=== PATIENT | female | born 1970 | race Caucasian/White ===

== ENCOUNTER 2017-06-27 17:51 | Observation (INO) | payer BC ==
--- NOTE | 2017-06-27 17:50 | CT ---
EXAMINATION TYPE: CT abdomen pelvis wo con DATE OF EXAM: 06/27/2017 HISTORY: RLQ pain for [address] DLP: 974 mGycm. Automated Exposure Control for Dose Reduction was Utilized. TECHNIQUE: CT scan of the abdomen and pelvis is performed without oral or IV contrast. COMPARISON: Gallbladder ultrasound May 16, 2017 FINDINGS: Within the limitations of a non-contrast study, the following observations are made. LUNG BASES: No significant abnormality is appreciated. LIVER/GB: Small stones and/or gallbladder sludge is redemonstrated in contracted gallbladder. No surr ounding inflammatory change is seen. PANCREAS: No significant abnormality is seen. SPLEEN: No significant abnormality is seen. ADRENALS: No significant abnormality is seen. KIDNEYS: No renal stones or hydronephrosis is present bilaterally. Multiple scattered pelvic phleboli ths are seen BOWEL: Evaluation bowel slightly suboptimal secondary to lack of enteric contrast. There is no suspic ious small or large bowel dilatation. Appendix is abnormally thickened from cecum in the right lower quadrant measuring up to 16 mm. There is moderate concentric wall thickening seen towards the tip. In addition there is moderate ill-defined surrounding fluid. CT findings are consistent with acute appe ndicitis. Terminal ileum is not well visualized. No well-formed fluid collection or abscess is seen. No pneumoperitoneum is present. GENITAL ORGANS: The uterus is not well identified and may be partially or completely surgically absen t or atrophic in appearance. Correlate clinically. LYMPH NODES: No greater than 1cm abdominal or pelvic lymph nodes are appreciated. OSSEOUS STRUCTURES: No significant abnormality is seen. OTHER: No significant additional abnormality is seen. IMPRESSION: CT findings consistent with a fairly moderate acute appendicitis as detailed above. No pn eumoperitoneum currently. Critical results communicated to the architectural technologist who contacted the ordering physician office. Pat ient sent to emergency room for further management and/or treatment.
[2017-06-27] MEDS ORDERED: SODIUM CHLORIDE 0.9% 1,000 ML IV ONE (18:56)
[2017-06-27] MEDS ORDERED: cefTRIAXone IN SWFI 1,000 MG/10 ML SYRINGE IVP STA (18:56)
[2017-06-27] MEDS ORDERED: metroNIDAZOLE 500 MG TAB PO STA (18:56)
[2017-06-27] MEDS ORDERED: NALOXONE 0.4 MG/ML 1 ML VIAL IV PRN (19:05)
--- NOTE | 2017-06-27 19:05 | ED ---
Abdominal Pain HPI - General Chief Complaint: Abdominal Pain Stated Complaint: Abd.pain Time Seen by Provider: 06/27/17 17:59 Source: patient Mode of arrival: ambulatory Limitations: no limitations - History of Present Illness Initial Comments: 47-year-old female presenting for evaluation of right lower quadrant abdominal pain. States that he symptoms started on Monday night however she continued to have pain and was sent for a CT abdomen and pelvis which showed appendicitis. She was transferred here for further treatment and evaluation. - Related Data Home Medications Medication Instructions Recorded Confirmed Ascorbic Acid [Vitamin C] 1,000 mg PO DAILY 06/27/17 06/27/17 Cranberry 4200mg 4,200 mg PO BID 06/27/17 06/27/17 Enalapril [Vasotec] 20 mg PO BID 06/27/17 06/27/17 Estradiol [Estrace] 1.5 mg PO DAILY 06/27/17 06/27/17 Hydroxychloroquine Sulfate 200 mg PO BID 06/27/17 06/27/17 [Plaquenil] Magnesium Oxide [Ch] 500 mg PO DAILY 06/27/17 06/27/17 Previous Rx's Medication Instructions Recorded Pantoprazole Sodium [Protonix] 40 mg PO BID #28 tablet. 06/29/17 Allergies Allergy/AdvReac Type Severity Reaction Status Date / Time narcotics Allergy Vomiting Uncoded 06/27/17 18:04 Review of Systems ROS Statement: Those systems with pertinent positive or pertinent negative responses have been documented in the HPI. ROS Other: All systems not noted in ROS Statement are negative. Constitutional: Denies: fever, chills Eyes: Denies: eye pain, vision change ENT: Denies: ear pain, throat pain Respiratory: Denies: cough, dyspnea Cardiovascular: Denies: chest pain, palpitations Endocrine: Denies: fatigue, polydipsia, polyuria Gastrointestinal: Reports: abdominal pain, nausea. 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 Past Surgical History: Section, Hysterectomy, Orthopedic Surgery Additional Past Surgical History / Comment(s): laparoscopy, kidney biopsy, knee surgery Past Psychological History: Depression Smoking Status: Never smoker Past Alcohol Use History: None Reported Past Drug Use History: None Reported - Past Family History Mother Brother(s) Family Medical History: AFIB Brother(s) Family Medical History: AFIB General Exam Limitations: no limitations General appearance: alert, in no apparent distress Head exam: Present: atraumatic, normocephalic, normal inspection Eye exam: Present: normal appearance, PERRL, EOMI. Absent: scleral icterus, conjunctival injection, periorbital swelling ENT exam: Present: normal exam, mucous membranes moist Neck exam: Present: normal inspection. Absent: tenderness, meningismus, lymphadenopathy Respiratory exam: Present: normal lung sounds bilaterally. Absent: respiratory distress, wheezes, rales, rhonchi, stridor Cardiovascular Exam: Present: regular rate, normal rhythm, normal heart sounds. Absent: systolic murmur, diastolic murmur, rubs, gallop, clicks GI/Abdominal exam: Present: soft, tenderness. Absent: distended, guarding, rebound, rigid, normal bowel sounds Rectal exam: Present: deferred Extremities exam: Present: normal inspection, full ROM, normal capillary refill. Absent: tenderness, pedal edema, joint swelling, calf tenderness Back exam: Present: normal inspection Neurological exam: Present: alert, oriented X3, CN II-XII intact Psychiatric exam: Present: normal affect, normal mood Skin exam: Present: warm, dry, intact, normal color. Absent: rash Course Vital Signs 06/27/17 06/27/17 18:04 19:48 Temperature 98.1 F 98.1 F Pulse Rate 64 78 Respiratory 16 18 Rate Blood Pressure 138/65 118/75 O2 Sat by Pulse 100 98 Oximetry Medical Decision Making - Medical Decision Making 47-year-old female presenting for evaluation of right lower quadrant abdominal pain. CT was obtained prior to coming to the ED and confirms appendicitis. Labs revealed a mild achy I but otherwise no other significant abnormalities. Discussed with the admitting provider who requested consult surgery. Surgery agreed with plan to keep patient nothing by mouth after midnight and to start the patient on antibiotics. Admission order placed in bed request submitted. - Lab Data Result diagrams: 06/28/17 06:50 06/28/17 06:50 Lab Results 06/27/17 06/27/17 Range/Units 18:27 18:27 WBC 8.9 (3.8-10.6) k/uL RBC 4.56 (3.80-5.40) m/uL Hgb 13.1 (11.4-16.0) gm/dL Hct 39.2 (34.0-46.0) % MCV 86.1 (80.0-100.0) fL MCH 28.7 (25.0-35.0) pg MCHC 33.4 (31.0-37.0) g/dL RDW 12.6 (11.5-15.5) % Plt Count 220 (150-450) k/uL Neutrophils % 76 % Lymphocytes % 17 % Monocytes % 5 % Eosinophils % 0 % Basophils % 0 % Neutrophils # 6.8 (1.3-7.7) k/uL Lymphocytes # 1.5 (1.0-4.8) k/uL Monocytes # 0.5 (0-1.0) k/uL Eosinophils # 0.0 (0-0.7) k/uL Basophils # 0.0 (0-0.2) k/uL ESR 21 H (0-20) mm/hr Sodium 140 (137-145) mmol/L Potassium 4.5 (3.5-5.1) mmol/L Chloride 101 (98-107) mmol/L Carbon Dioxide 26 (22-30) mmol/L Anion Gap 13 mmol/L BUN 24 H (7-17) mg/dL Creatinine 1.20 H (0.52-1.04) mg/dL Est GFR (MDRD) Af Amer 59 (>60 ml/min/1.73 sqM) Est GFR (MDRD) Non-Af 48 (>60 ml/min/1.73 sqM) Glucose 76 (74-99) mg/dL Calcium 10.3 H (8.4-10.2) mg/dL C-Reactive Protein 34.6 H (<10.0) mg/L Disposition Clinical Impression: Acute appendicitis Disposition: ADMITTED IP TO THIS [facility] Condition: Good Decision to Admit Reason: Admit from EC Decision Date: 06/27/17 Decision Time: 19:05
[2017-06-27] MEDS ORDERED: ONDANSETRON 4 MG/2 ML VIAL IVP PRN (19:10)
[2017-06-27] MEDS ORDERED: MORPHINE SULFATE 5 MG/ML SYRINGE IV PRN (19:10)
[2017-06-27 19:16] LABS: Basophils % (A) 0 %; Eosinophils % (A) 0 %; HCT 39.2 % (34.0-46.0); HGB 13.1 gm/dL (11.4-16.0); Lymphocytes # (A) 1.5 k/uL (1.0-4.8); Lymphocytes % (A) 17 %; MCH 28.7 pg (25.0-35.0); MCHC 33.4 g/dL (31.0-37.0); MCV 86.1 fL (80.0-100.0); Mean Platelet Volume 7.6; Monocytes # (A) 0.5 k/uL (0-1.0); Monocytes % (A) 5 %; Neutrophils # (A) 6.8 k/uL (1.3-7.7); Neutrophils % (A) 76 %; Platelet Count 220 k/uL (150-450); RBC 4.56 m/uL (3.80-5.40); RDW 12.6 % (11.5-15.5); WBC 8.9 k/uL (3.8-10.6)
[2017-06-27 19:17] LABS: C Reactive Protein 34.6 mg/L (<10.0); Calcium 10.3 mg/dL (8.4-10.2); Potassium 4.5 mmol/L (3.5-5.1)
[2017-06-27 20:13] LABS: Erythrocyte Sedimentation Rate 21 mm/hr (0-20)
[2017-06-27] MEDS: SODIUM CHLORIDE 0.9% 1,000 ML IV SCH (20:41)
[2017-06-27] MEDS ORDERED: CRANBERRY 4200 MG PO SCH (21:00)
[2017-06-27] MEDS ORDERED: LORazepam 2 MG/ML INJ IV PRN (21:21)
[2017-06-27] MEDS ORDERED: PANTOPRAZOLE 40 MG/10 ML VIAL IVP STA (21:22)
[2017-06-27] MEDS ORDERED: HYDROmorphone 0.5 MG/0.5 ML SYRINGE IVP PRN (21:29)
[2017-06-27 21:48] VITALS: BMI 25.5
[2017-06-27] MEDS: KETOROLAC 30 MG/ML 1 ML VIAL IVP SCH (22:34)
[2017-06-27] MEDS: LISINOPRIL 20 MG TAB PO SCH (22:35)
[2017-06-27] MEDS: HYDROXYCHLOROQUINE SULFATE 200 MG TAB PO SCH (22:35)
--- NOTE | 2017-06-28 03:41 | HP ---
HISTORY AND PHYSICAL DATE OF SERVICE: 06/27/2017 CHIEF COMPLAINT: Abdominal pain, nausea, vomiting. HISTORY OF PRESENT ILLNESS: This 47-year-old woman with a past medical history of multiple medical problems, including hypertension, history of lupus with kidney disease, history of VRE, history of DJD, history of depression being followed by Dr. Tavares in the outpatient setting is complaining of abdominal pain since today. The pain is felt in the lower part of the abdomen. The patient previously had gallbladder pain and had scheduled her surgery in the summer from [facility]. The current pain, according to her, is situated lower than the gallbladder pain, which is radiating like a band in the lower part of the abdomen. The patient came to [facility] and admitted for further evaluation and treatment. Evaluation showed normal CBC. Creatinine was 1.2. C - reactive protein is elevated at 34.6 and abdominal-pelvis CAT scan was also done which showed evidence of fairly moderate acute appendicitis and without any pneumoperitoneum and the gallbladder showed gallbladder stones and sludge, also. There was no history of fever, rigors. No history of headache, loss of consciousness, seizures. Patient refused any pain medication, but subsequently patient has significant abdominal pain as well as vomiting also. Surgical evaluation with Dr. Bullock is underway. There is no history of fever, rigors, chills at this time. PAST MEDICAL HISTORY: History of hypertension, lupus with kidney disease, VRE, . MEDICATIONS PRIOR TO ADMISSION: Include: 1. Magnesium oxide 500 mg p.o. daily. 2. Plaquenil 200 mg p.o. b.i.d. 3. Estrace 1.5 mg daily. 4. Vasotec 20 mg p.o. b.i.d. 5. Cranberry 4.2 mg p.o. b.i.d. 6. Ecotrin 320 mg p.o. daily. 7. Vitamin C 1000 mg. ALLERGIES: Are NARCOTICS. FAMILY HISTORY: History A. fib. in the family. SOCIAL HISTORY: No history of smoking. No history of alcohol intake. REVIEW OF SYSTEMS: ENT: No diminished hearing, diminished vision. CARDIOVASCULAR: No angina, palpitations. RESPIRATORY: No cough or hemoptysis. GI: No nausea or vomiting. : No dysuria. NERVOUS: No numbness or weakness. ALLERGY/IMMUNOLOGY: No asthma or hay fever. MUSCULOSKELETAL: As mentioned earlier. HEMATOLOGY/ONCOLOGY: No history of anemia. ENDOCRINE: No history of diabetes, hypothyroidism. CONSTITUTIONAL: As mentioned earlier. DERMATOLOGY: Negative. RHEUMATOLOGY: Negative. PSYCHIATRY: As mentioned earlier. PHYSICAL EXAMINATION: Alert and oriented x3. Pulse is 64, blood pressure 130/64, respirations 16, temperature 98.1, pulse ox 100% on room air. HEENT: Conjunctivae normal. Oral mucosa dry. NECK: No jugular venous distention. CARDIOVASCULAR: S1, S2 muffled. RESPIRATORY: Breath sounds diminished in the bases. A few scattered rhonchi. No crackles. ABDOMEN: Soft. Mild diffuse distension. Significant tenderness in the right lower quadrant present. No guarding, no rigidity. No masses. Bowel sounds diminished. No ascites. No rebound tenderness. No other mass palpable. LEGS: No edema. No swelling. NERVOUS SYSTEM: Higher functions as mentioned earlier. Moves all 4 limbs. No focal motor or sensory deficits. LYMPHATIC: No lymphadenopathy in neck or axillae. SKIN: No ulcer, rash or bleeding. LABS: ESR is 21. CBC within normal limits. Creatinine is 1.20. C-reactive protein is 34.6. ASSESSMENT: 1. Acute appendicitis. 2. History of gallbladder stones scheduled for surgery. 3. Increased creatinine with mild acute renal failure, prerenal factors. 4. Hypertension. 5. History of lupus with kidney disease. 6. History of vancomycin-resistant Enterococcus. 7. Hysterectomy. 8. History of laparoscopic kidney biopsy. 9. Depression. RECOMMENDATIONS AND DISCUSSION: In this 47-year-old woman who presented with multiple complex medical issues, we will monitor the patient closely, continue the current medical management and symptomatic treatment, obtain cultures. Otherwise empiric antibiotics will be given, pain management, Protonix, DVT prophylaxis. Resume the home medications. Prognosis guarded because of multiple complex medical issues and further recommendations to follow. A copy of dictation will be forwarded to Dr. Tavares, who is the primary physician. MMODL / IJN: [id number] / MTDFelipe
[2017-06-28 07:19] LABS: Basophils % (A) 0 %; Eosinophils # (A) 0.1 k/uL (0-0.7); Eosinophils % (A) 1 %; HGB 10.7 gm/dL (11.4-16.0); Lymphocytes # (A) 0.6 k/uL (1.0-4.8); Lymphocytes % (A) 5 %; MCH 28.3 pg (25.0-35.0); MCHC 32.3 g/dL (31.0-37.0); MCV 87.4 fL (80.0-100.0); Mean Platelet Volume 8.1; Monocytes # (A) 0.4 k/uL (0-1.0); Monocytes % (A) 3 %; Neutrophils # (A) 10.3 k/uL (1.3-7.7); Neutrophils % (A) 91 %; Platelet Count 161 k/uL (150-450); RBC 3.78 m/uL (3.80-5.40); RDW 13.3 % (11.5-15.5); WBC 11.4 k/uL (3.8-10.6)
[2017-06-28 07:26] LABS: Anion Gap 12 mmol/L; Blood Urea Nitrogen 18 mg/dL (7-17); Calcium 9.1 mg/dL (8.4-10.2); Carbon Dioxide 21 mmol/L (22-30); Chloride 107 mmol/L (98-107); Glucose 89 mg/dL (74-99); Potassium 4.1 mmol/L (3.5-5.1); Sodium 140 mmol/L (137-145)
[2017-06-28] MEDS: HEPARIN SODIUM,PORCINE 5,000 UNIT/ML 1 ML VIAL SQ SCH ×3 (08:42→22:09)
[2017-06-28] MEDS: PANTOPRAZOLE 40 MG/10 ML VIAL IVP SCH ×2 (08:42→21:56)
[2017-06-28] MEDS: PIPERACILLIN-TAZOBACTAM 3.375 GM in DEXTROSE/WATER 1 50ML.BAG IVPB SCH ×2 (08:43→20:16)
[2017-06-28] MEDS: KETOROLAC 30 MG/ML 1 ML VIAL IVP SCH ×2 (08:51→20:33)
[2017-06-28] MEDS ORDERED: ASPIRIN 325 MG TAB PO SCH (09:00)
[2017-06-28] MEDS: ESTRADIOL 0.5 MG TAB PO SCH (10:46)
[2017-06-28] MEDS: ASCORBIC ACID 500 MG TAB PO SCH (10:46)
[2017-06-28] MEDS: HYDROXYCHLOROQUINE SULFATE 200 MG TAB PO SCH ×2 (10:47→22:12)
[2017-06-28] MEDS: MAGNESIUM OXIDE 400 MG TAB PO SCH (10:47)
[2017-06-28] MEDS: LISINOPRIL 20 MG TAB PO SCH ×2 (10:47→22:12)
[2017-06-28] MEDS: SODIUM CHLORIDE 0.9% 1,000 ML IV SCH (11:15)
--- NOTE | 2017-06-28 11:23 | P.GSCN ---
<Negra Quinn - Last Filed: 06/28/17 11:09> History of Present Illness Consult date: 06/28/17 Reason for Consult: Abdominal pain History of present illness: 47-year-old female being seen at the request of the attending for a surgical eval who presented to the emergency room with a chief complaint of right lower abdominal pain. Patient states the pain is different than her "gallbladder pain should been experiencing. Patient states she had been experiencing epigastric abdominal discomfort had an ultrasound of the gallbladder done on May 16. Report was reviewed it did show gallbladder sludge with no obvious stones no wall thickening. No secondary ultrasound evidence for acute cholecystitis. Patient reports that she was to see a surgeon in [facility] to follow up on the ultrasound of the gallbladder in which the patient states she was hoping to have the surgery done in the summer when she's not working. Patient states the pain she been experiencing this admission is different than "her gallbladder pain. In the emergency room a CAT scan of the abdomen and pelvis without contrast was obtained as part of workup for right lower quadrant pain findings consistent with a fairly moderate acute appendicitis. Patient gives a history of having intentionally lost 100 pounds within the last year by diet and exercise. Patient's past medical history significant for lupus , paroxysmal atrial fibrillation, hypertension. 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 Past Surgical History: Section, Hysterectomy, Orthopedic Surgery Additional Past Surgical History / Comment(s): laparoscopy, kidney biopsy, knee surgery Past Psychological History: Depression Smoking Status: Never smoker Past Alcohol Use History: None Reported Past Drug Use History: None Reported - Past Family History Mother Brother(s) Family Medical History: AFIB Brother(s) Family Medical History: AFIB Medications and Allergies Home Medications Medication Instructions Recorded Confirmed Type Ascorbic Acid [Vitamin C] 1,000 mg PO DAILY 06/27/17 06/27/17 History Aspirin EC [Ecotrin] 325 mg PO DAILY 06/27/17 06/27/17 History Cranberry 4200mg 4,200 mg PO BID 06/27/17 06/27/17 History Enalapril [Vasotec] 20 mg PO BID 06/27/17 06/27/17 History Estradiol [Estrace] 1.5 mg PO DAILY 06/27/17 06/27/17 History Hydroxychloroquine Sulfate 200 mg PO BID 06/27/17 06/27/17 History [Plaquenil] Magnesium Oxide [Ch] 500 mg PO DAILY 06/27/17 06/27/17 History Allergies Allergy/AdvReac Type Severity Reaction Status Date / Time narcotics Allergy Vomiting Uncoded 06/27/17 18:04 Surgical - Exam Vital Signs Temp Pulse Resp BP Pulse Ox 98.1 F 64 16 138/65 100 06/27/17 18:04 06/27/17 18:04 06/27/17 18:04 06/27/17 18:04 06/27/17 18:04 GENERAL APPEARANCE: Pleasant 47-year-old female patient is alert, oriented x 3 in no acute distress. VITAL SIGNS: Reviewed HEENT: Head is normocephalic and atraumatic. Pupils are equal and reactive. The nares are patent. Oropharynx is clear without lesions. NECK: Supple without lymphadenopathy. Traches midline. HEART: S1, S2. Regular rate and rhythm. No murmur noted denying chest pain LUNGS: No crackles or wheezes are heard. Adequate air movement bilaterally no cough no shortness of breath ABDOMEN: Soft, tenderness right lower quadrant reports a nausea sensation no emesis nondistended with good bowel sounds. No peritoneal signs. No palpable organomegaly or masses. EXTREMITIES: Normal skin color and turgor. No cyanosis, rash, ulceration, clubbing or edema. Radial pedal pulses are 2/4 bilaterally. NEUROLOGICAL: No focal deficits. Strength and sensation are grossly intact. Results - Labs 06/28/17 06:50 06/28/17 06:50 Abnormal Lab Results - Last 24 Hours (Table) 06/27/17 06/27/17 06/28/17 Range/Units 18:27 18:27 06:50 WBC 11.4 H (3.8-10.6) k/uL RBC 3.78 L (3.80-5.40) m/uL Hgb 10.7 L (11.4-16.0) gm/dL Hct 33.0 L (34.0-46.0) % Neutrophils # 10.3 H (1.3-7.7) k/uL Lymphocytes # 0.6 L (1.0-4.8) k/uL ESR 21 H (0-20) mm/hr Carbon Dioxide (22-30) mmol/L BUN 24 H (7-17) mg/dL Creatinine 1.20 H (0.52-1.04) mg/dL Calcium 10.3 H (8.4-10.2) mg/dL C-Reactive Protein 34.6 H (<10.0) mg/L 06/28/17 Range/Units 06:50 WBC (3.8-10.6) k/uL RBC (3.80-5.40) m/uL Hgb (11.4-16.0) gm/dL Hct (34.0-46.0) % Neutrophils # (1.3-7.7) k/uL Lymphocytes # (1.0-4.8) k/uL ESR (0-20) mm/hr Carbon Dioxide 21 L (22-30) mmol/L BUN 18 H (7-17) mg/dL Creatinine (0.52-1.04) mg/dL Calcium (8.4-10.2) mg/dL C-Reactive Protein (<10.0) mg/L Diabetes panel 06/27/17 06/28/17 Range/Units 18:27 06:50 Sodium 140 140 (137-145) mmol/L Potassium 4.5 4.1 (3.5-5.1) mmol/L Chloride 101 107 (98-107) mmol/L Carbon Dioxide 26 21 L (22-30) mmol/L BUN 24 H 18 H (7-17) mg/dL Creatinine 1.20 H 0.78 (0.52-1.04) mg/dL Glucose 76 89 (74-99) mg/dL Calcium 10.3 H 9.1 (8.4-10.2) mg/dL Calcium panel 06/27/17 06/28/17 Range/Units 18:27 06:50 Calcium 10.3 H 9.1 (8.4-10.2) mg/dL Pituitary panel 06/27/17 06/28/17 Range/Units 18:27 06:50 Sodium 140 140 (137-145) mmol/L Potassium 4.5 4.1 (3.5-5.1) mmol/L Chloride 101 107 (98-107) mmol/L Carbon Dioxide 26 21 L (22-30) mmol/L BUN 24 H 18 H (7-17) mg/dL Creatinine 1.20 H 0.78 (0.52-1.04) mg/dL Glucose 76 89 (74-99) mg/dL Calcium 10.3 H 9.1 (8.4-10.2) mg/dL Adrenal panel 06/27/17 06/28/17 Range/Units 18:27 06:50 Sodium 140 140 (137-145) mmol/L Potassium 4.5 4.1 (3.5-5.1) mmol/L Chloride 101 107 (98-107) mmol/L Carbon Dioxide 26 21 L (22-30) mmol/L BUN 24 H 18 H (7-17) mg/dL Creatinine 1.20 H 0.78 (0.52-1.04) mg/dL Glucose 76 89 (74-99) mg/dL Calcium 10.3 H 9.1 (8.4-10.2) mg/dL Assessment and Plan Assessment: Impression Present on admission right lower quadrant pain with nausea suspect due to acute appendicitis Present on admission CAT scan abdomen pelvis show evidence of a fairly moderate acute appendicitis without any pneumoperitoneum History of paroxysmal atrial fibrillation History of lupus Ultrasound May 16 2017 show gallbladder sludge Plan Patient will be scheduled today for a laparoscopic appendectomy Pain control DVT and GI prophylaxis Keep nothing by mouth for planned procedure Surgical Consultation note dictated for The above impression and plan of care have been discussed and directed by signing physician. Negra Quinn nurse practitioner acting as scribe for signing physician. <Shivam Bullock - Last Filed: 06/28/17 15:33> Surgical - Exam Vital Signs Temp Pulse Resp BP Pulse Ox 98.1 F 64 16 138/65 100 06/27/17 18:04 06/27/17 18:04 06/27/17 18:04 06/27/17 18:04 06/27/17 18:04 Results - Labs 06/28/17 06:50 06/28/17 06:50 Abnormal Lab Results - Last 24 Hours (Table) 06/27/17 06/27/17 06/28/17 Range/Units 18:27 18:27 06:50 WBC 11.4 H (3.8-10.6) k/uL RBC 3.78 L (3.80-5.40) m/uL Hgb 10.7 L (11.4-16.0) gm/dL Hct 33.0 L (34.0-46.0) % Neutrophils # 10.3 H (1.3-7.7) k/uL Lymphocytes # 0.6 L (1.0-4.8) k/uL ESR 21 H (0-20) mm/hr Carbon Dioxide (22-30) mmol/L BUN 24 H (7-17) mg/dL Creatinine 1.20 H (0.52-1.04) mg/dL Calcium 10.3 H (8.4-10.2) mg/dL C-Reactive Protein 34.6 H (<10.0) mg/L 06/28/17 Range/Units 06:50 WBC (3.8-10.6) k/uL RBC (3.80-5.40) m/uL Hgb (11.4-16.0) gm/dL Hct (34.0-46.0) % Neutrophils # (1.3-7.7) k/uL Lymphocytes # (1.0-4.8) k/uL ESR (0-20) mm/hr Carbon Dioxide 21 L (22-30) mmol/L BUN 18 H (7-17) mg/dL Creatinine (0.52-1.04) mg/dL Calcium (8.4-10.2) mg/dL C-Reactive Protein (<10.0) mg/L Diabetes panel 06/27/17 06/28/17 Range/Units 18:27 06:50 Sodium 140 140 (137-145) mmol/L Potassium 4.5 4.1 (3.5-5.1) mmol/L Chloride 101 107 (98-107) mmol/L Carbon Dioxide 26 21 L (22-30) mmol/L BUN 24 H 18 H (7-17) mg/dL Creatinine 1.20 H 0.78 (0.52-1.04) mg/dL Glucose 76 89 (74-99) mg/dL Calcium 10.3 H 9.1 (8.4-10.2) mg/dL Calcium panel 06/27/17 06/28/17 Range/Units 18:27 06:50 Calcium 10.3 H 9.1 (8.4-10.2) mg/dL Pituitary panel 06/27/17 06/28/17 Range/Units 18:27 06:50 Sodium 140 140 (137-145) mmol/L Potassium 4.5 4.1 (3.5-5.1) mmol/L Chloride 101 107 (98-107) mmol/L Carbon Dioxide 26 21 L (22-30) mmol/L BUN 24 H 18 H (7-17) mg/dL Creatinine 1.20 H 0.78 (0.52-1.04) mg/dL Glucose 76 89 (74-99) mg/dL Calcium 10.3 H 9.1 (8.4-10.2) mg/dL Adrenal panel 06/27/17 06/28/17 Range/Units 18:27 06:50 Sodium 140 140 (137-145) mmol/L Potassium 4.5 4.1 (3.5-5.1) mmol/L Chloride 101 107 (98-107) mmol/L Carbon Dioxide 26 21 L (22-30) mmol/L BUN 24 H 18 H (7-17) mg/dL Creatinine 1.20 H 0.78 (0.52-1.04) mg/dL Glucose 76 89 (74-99) mg/dL Calcium 10.3 H 9.1 (8.4-10.2) mg/dL Assessment and Plan Plan: The patient also has history of cholelithiasis and right upper quadrant pain. She'll undergo laparoscopic appendectomy and possible laparoscopic cholecystectomy.
[2017-06-28] MEDS ORDERED: IV FLUID CONTINUATION 550 ML IV ONE (14:56)
--- NOTE | 2017-06-28 15:30 | P.PN ---
Progress Note - Text Progress Note Date: 06/28/17 Patient states that she's had complaints of right quadrant pain past. Her family doctor has generally has her scheduled see a surgeon regarding cholecystectomy. The patient wished to have her gallbladder removed at the time of her appendix. I discussed through that we will base cholecystectomy at the time of surgery. And it may be possible depending on the condition of her appendix.
[2017-06-28] MEDS ORDERED: SCOPOLAMINE 1.5MG/72HR PATCH TRANSDERM ONE (15:36)
[2017-06-28] MEDS ORDERED: HEPARIN SODIUM,PORCINE 5,000 UNIT/ML 1 ML VIAL SQ STA (15:37)
[2017-06-28] MEDS ORDERED: LIDOCAINE 1% INJ 10MG/ML (20 ML MDV) ONE (16:44)
[2017-06-28] MEDS ORDERED: NEOSTIGMINE 1 MG/ML 10 ML VIAL ONE (16:44)
[2017-06-28] MEDS ORDERED: ROCURONIUM BROMIDE 10 MG/ML 10 ML VIAL IV ONE (16:44)
[2017-06-28] MEDS ORDERED: GLYCOPYRROLATE 0.2 MG/ML 2 ML VIAL ONE (16:44)
[2017-06-28] MEDS ORDERED: PROPOFOL 10 MG/ML 20 ML VIAL IV ONE (16:44)
[2017-06-28] MEDS ORDERED: fentaNYL (PF) 50 MCG/ML 2 ML AMP ONE (16:44)
[2017-06-28] MEDS ORDERED: SUCCINYLCHOLINE CHLORIDE 100 MG/5 ML SYR IV ONE (16:44)
[2017-06-28] MEDS ORDERED: MIDAZOLAM 2 MG/2 ML VIAL ONE (16:44)
[2017-06-28] MEDS ORDERED: KETOROLAC 30 MG/ML 1 ML VIAL ONE (16:44)
[2017-06-28] MEDS ORDERED: BUPIVACAINE (PF) 0.5% 30 ML VIAL SQ ONE (17:00)
[2017-06-28] MEDS ORDERED: METOCLOPRAMIDE 5 MG/ML 2 ML VIAL IVP PRN (17:26)
[2017-06-28] MEDS ORDERED: ONDANSETRON 4 MG/2 ML VIAL IVP PRN (17:26)
[2017-06-28] MEDS ORDERED: BISACODYL 10 MG SUPP RECTAL PRN (17:26)
[2017-06-28] MEDS ORDERED: HYDROcodone/APAP 5-325MG 1 EACH TAB PO PRN (17:26)
[2017-06-28] MEDS ORDERED: NALOXONE 0.4 MG/ML 1 ML VIAL IV PRN (17:26)
[2017-06-28] MEDS ORDERED: ACETAMINOPHEN TAB 325 MG TAB PO PRN (17:26)
[2017-06-28] MEDS ORDERED: traMADol 50 MG TAB PO PRN (17:26)
[2017-06-28] MEDS ORDERED: HYDROmorphone 0.5 MG/0.5 ML SYRINGE IVP PRN (17:26)
[2017-06-28] MEDS ORDERED: LACTATED RINGERS 1,000 ML IV ONE ×2 (17:26→17:27)
[2017-06-28] MEDS ORDERED: PROMETHAZINE 25 MG TAB PO PRN (17:26)
--- NOTE | 2017-06-28 21:02 | PN ---
PROGRESS NOTE DATE OF SERVICE: 06/28/2017 This 47-year-old woman who was admitted with abdominal pain, nausea, vomiting, had features of acute appendicitis. Surgery is being planned today. No chest pain. No palpitations. No fever. PHYSICAL EXAMINATION: Alert and oriented x3. Pulse is 54, blood pressure 94/60, respiration 16, temperature 98.3, pulse ox 100% on room air. HEENT: Conjunctivae normal. NECK: No jugular venous distention. CARDIOVASCULAR SYSTEM: S1, S2 muffled. RESPIRATORY SYSTEM: Breath sounds diminished at the bases. A few scattered rhonchi and crackles. ABDOMEN: Soft. Mild diffuse tenderness present, more so in the right lower quadrant. Bowel sounds diminished. LEGS: No edema. No swelling. NERVOUS SYSTEM: No focal deficit. LABS: WBC 11.2, hemoglobin 10.7. ASSESSMENT: 1. Acute appendicitis with SIRS. 2. History of gallbladder stones, scheduled for surgery. 3. Increased creatinine with mild acute renal failure and prerenal factors. 4. Hypertension. 5. 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 7. Hysterectomy. 8. History of laparoscopic kidney biopsy. 9. Depression history. RECOMMENDATIONS AND DISCUSSION: I recommend to continue current medication, continue monitoring, symptomatic treatment. Otherwise, closely follow with Surgery. Repeat labs. Continue the broad-spectrum IV antibiotics. Guarded prognosis. Further recommendations to follow. Closely follow with Surgery. MMODL / IJN: [id number] /
[2017-06-28] MEDS ORDERED: diphenhydrAMINE 25 MG CAP PO SCH (21:30)
[2017-06-28] MEDS ORDERED: KETOROLAC 30 MG/ML 1 ML VIAL IVP SCH (21:30)
[2017-06-28] MEDS: FAMOTIDINE 20 MG TAB PO SCH (22:09)
[2017-06-29] MEDS ORDERED: KETOROLAC 30 MG/ML 1 ML VIAL IVP PRN (03:02)
[2017-06-29] MEDS: PIPERACILLIN-TAZOBACTAM 3.375 GM in DEXTROSE/WATER 1 50ML.BAG IVPB SCH ×2 (04:31→13:04)
[2017-06-29] MEDS: SODIUM CHLORIDE 0.9% 1,000 ML IV SCH (06:48)
[2017-06-29] MEDS: ASCORBIC ACID 500 MG TAB PO SCH (08:27)
[2017-06-29] MEDS: MAGNESIUM OXIDE 400 MG TAB PO SCH (08:28)
[2017-06-29] MEDS: LISINOPRIL 20 MG TAB PO SCH (08:28)
[2017-06-29] MEDS: HYDROXYCHLOROQUINE SULFATE 200 MG TAB PO SCH (08:28)
[2017-06-29] MEDS: FAMOTIDINE 20 MG TAB PO SCH (08:28)
[2017-06-29] MEDS: ESTRADIOL 0.5 MG TAB PO SCH (08:30)
[2017-06-29] MEDS ORDERED: ENOXAPARIN 40 MG/0.4 ML SYRINGE SQ SCH (09:00)
--- NOTE | 2017-06-29 10:48 | P.PN ---
Subjective Progress Note Date: 06/29/17 47-year-old female seen and examined. Patient has been up ambulating in the hallway passing gas. Patient states anxious to be discharged home. Patient is not requiring any analgesics for pain control. Patient is postop laparoscopic appendectomy done on the surgical sites no evidence of any redness afebrile Patient states she does not need a prescription for any analgesics for pain control as plain Tylenol has been effective Objective - Vital Signs Vital signs: Vital Signs Temp 98.0 F 06/29/17 09:07 Pulse 50 L 06/29/17 09:07 Resp 16 06/29/17 09:07 BP 93/57 06/29/17 09:07 Pulse Ox 97 06/29/17 09:07 Intake & Output 06/28/17 06/29/17 06/29/17 18:59 06:59 18:59 Intake Total 1550 300 Output Total 10 Balance 1540 300 Intake: IV 1550 Oral 300 Output: Estimated Blood Loss 10 Other: # Voids 1 1 - Exam physical exam Pleasant 47-year-old female ambulating in the hallway denies dizziness lightheadedness no chest pain. Lungs adequate air movement bilaterally on room air Heart S1-S2 audible regular denying chest pain Abdomen surgical incision sites dressings dry soft nondistended bowel tones present passing gas tolerating clear liquid Extremities no edema noted - Labs CBC & Chem 7: 06/28/17 06:50 06/28/17 06:50 Assessment and Plan Assessment: Impression Present on admission right lower quadrant pain with nausea suspect due to acute appendicitis Present on admission CAT scan abdomen pelvis show evidence of a fairly moderate acute appendicitis without any pneumoperitoneum History of paroxysmal atrial fibrillation History of lupus Ultrasound May 16 2017 show gallbladder sludge postop June 28 laparoscopic appendectomy for acute appendicitis Plan okay to proceed with a discharge from a surgical perspective defer to the timing to the attending Pain control DVT and GI prophylaxis Surgical Consultation note dictated for The above impression and plan of care have been discussed and directed by signing physician. Negra Quinn nurse practitioner acting as scribe for signing physician.
--- NOTE | 2017-06-29 11:37 | P.OP ---
Date of Procedure: 06/28/17 Preoperative Diagnosis: Acute appendicitis Postoperative Diagnosis: Acute appendicitis Procedure(s) Performed: Laparoscopic appendectomy Anesthesia: WAYNE Surgeon: Shivam Bulolck Estimated Blood Loss (ml): 5 Pathology: other Condition: stable Disposition: PACU Description of Procedure: HThe patient's placed on the operating table in the supine position. The patient received general anesthesia. The abdomen was prepped and draped in the usual sterile fashion. The skin was anesthetized 1% local Xylocaine at the trocar sites. Using an 11 blade the skin was incised at the umbilicus. The umbilicus was grasped with a [place] clamp and then a Veress needle was placed into the peritoneal cavity. Position of the Veress needle was confirmed with positive drop test. After adequate insufflation a 5 mm trocar was placed into the peritoneal cavity. The abdomen was further insufflated. And then the laparoscope was placed in the peritoneal cavity. Next a 5 mm trocar was placed in the midline suprapubic position. And then a 10 mm trocar was placed in the midline epigastric position. The patient was rotated with the right side up and in Trendelenburg. The appendix was visualized. The appendix appeared to be inflamed. The appendix was grasped and then using the Harmonic scissors the mesoappendix was divided. A PDS Endoloop was then placed around the base of the appendix. And then the appendix was divided using Harmonic scissors. The appendix was placed into an Endo Catch and brought out through the 10 mm trocar site. The abdomen was irrigated. There is no bleeding seen. The trochars withdrawn. The skin was closed interrupted 3-0 Monocryl suture. Dermabond dressing was applied. Patient was sent to recovery room in stable condition.
[2017-06-29 17:15] VITALS: BP 118/69; PULSE 52; RESP 18; TEMP 97.5
--- NOTE | 2017-06-30 08:55 | DS ---
DISCHARGE SUMMARY DATE OF SERVICE: 06/29/2017. FINAL DIAGNOSES: 1. Acute appendicitis and systemic inflammatory response syndrome, status post laparoscopic appendectomy. 2. History of gallbladder stones, scheduled for surgery. 3. Increased creatinine with mild acute renal failure, prerenal factors. 4. Hypertension. 5. 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 7. Hysterectomy. 8. History of laparoscopic kidney biopsy. 9. Depression history. DISCHARGE DISPOSITION: The patient will be discharged in stable condition with guarded prognosis. Discharge cleared by surgery. HISTORY OF PRESENT ILLNESS: This 47-year-old woman with a past medical history of multiple medical problems admitted with features of acute appendicitis, SIRS. Dr. Bullock performed laparoscopic appendectomy. Patient improved significantly. On exam, vitals are stable. CARDIOVASCULAR: S1 and S2 muffled. RESPIRATORY: Clear to auscultation. ABDOMEN: Soft, nontender. The patient will be discharged in stable condition with guarded prognosis. DISCHARGE ADVICE: 1. Diet is soft, advanced as tolerated. 2. Follow up with Dr. Bullock as advised. 3. Follow up with Dr. Tavares as advised. The medications are; 1. Vitamin C 1000 mg daily. 2. Ecotrin 325 mg daily. 3. Cranberry mg p.o. b.i.d. 4. Vasotec 20 mg p.o. b.i.d. 5. Estrace 1.5 mg daily. 6. Plaquenil 200 mg b.i.d. 7. Magnesium oxide 400 mg. 8. Protonix 40 mg p.o. b.i.d. Please note, hold the Ecotrin for now and then restart later once the patient is less nauseated. Capri CHOI / HALEYN: [id number] / MTDD
== END 2017-06-29 17:25 | disposition home or self-care (01) ==
LOC: EC 17:51 → EDSTATUS 18:00 → 6PED 19:05
PROVIDERS: ADMIT Internal Medicine; ATTEND Internal Medicine
DX: K35.80 Unspecified acute appendicitis (principal); R65.10 Systemic inflammatory response syndrome (SIRS) of non-infectious origin without acute organ dysfunction; N17.9 Acute kidney failure, unspecified; I10 Essential (primary) hypertension; M32.14 Glomerular disease in systemic lupus erythematosus; I48.0 Paroxysmal atrial fibrillation; F32.9 Major depressive disorder, single episode, unspecified; M19.90 Unspecified osteoarthritis, unspecified site; K80.20 Calculus of gallbladder without cholecystitis without obstruction; Z16.21 Resistance to vancomycin; Z79.899 Other long term (current) drug therapy; Z79.82 Long term (current) use of aspirin; Z88.5 Allergy status to narcotic agent
CPT/HCPCS: 44970; 99285; 36415; 88304; 80048 ×2; 85652; 85025 ×2; 86140; 74176; G0378 ×3; J2250; J1644; J2710; J2405; J2001; J1650; J0696; J3010; J1885 ×3; J2543 ×2; J0330; J2704; C9113 ×2

== ENCOUNTER → 2017-07-03 | Outpatient (CLI) | payer BC ==
--- NOTE | 2017-07-03 14:30 | US ---
EXAMINATION TYPE: US venous doppler duplex LE LT DATE OF EXAM: 07/03/2017 2:03 PM COMPARISON: NONE CLINICAL HISTORY: M79.605 Pain Left Leg, Post Op 4 Days. Patient stated has left calf pain today post appendectomy. SIDE PERFORMED: Left TECHNIQUE: The lower extremity deep venous system is examined utilizing real time linear array sonog nicho with graded compression, doppler sonography and color-flow sonography. VESSELS IMAGED: Common Femoral Vein Deep Femoral Vein Greater Saphenous Vein * Femoral Vein Popliteal Vein Small Saphenous Vein * Proximal Calf Veins (* superficial vessels) Left Leg: Negative for DVT IMPRESSION: 1. Left lower extremity is negative for deep venous thrombosis on ultrasound.
== END | disposition home or self-care (01) ==
LOC: RADUSWWP 13:34
PROVIDERS: ATTEND Family Medicine
DX: M79.605 Pain in left leg (principal)

== ENCOUNTER → 2017-07-08 | Outpatient (CLI) | payer BC ==
--- NOTE | 2017-07-11 08:05 | MM ---
Reason for exam: screening (asymptomatic). Last mammogram was performed 1 year and 3 months ago. History: Patient is postmenopausal. Family history of breast cancer in paternal grandmother at age 75. Benign excisional biopsy of the right breast, 2005. Taking estrogen for 8 years beginning at age 39. Physical Findings: A clinical breast exam by your physician is recommended on an annual basis and results should be correlated with mammographic findings. MG Screening Mammo w CAD Bilateral CC and MLO view(s) were taken. Prior study comparison: March 24, 2016, bilateral MG screening mammo w CAD. January 08, 2014, bilateral MG screening mammo w CAD. The breast tissue is heterogeneously dense. This may lower the sensitivity of mammography. Benign calcifications. There is no discrete abnormality. No significant changes when compared with prior studies. ASSESSMENT: Benign, BI-RAD 2 RECOMMENDATION: Routine screening mammogram of both breasts in 1 year.
== END ==
LOC: RADMAMWWP 09:32
PROVIDERS: ATTEND Internal Medicine
DX: Z12.31 Encounter for screening mammogram for malignant neoplasm of breast (principal)
CPT/HCPCS: 77067

== ENCOUNTER → 2018-11-13 | Outpatient (CLI) | payer BC ==
--- NOTE | 2018-11-14 10:55 | MM ---
Reason for exam: screening (asymptomatic). Last mammogram was performed 1 year and 4 months ago. History: Patient is postmenopausal. Family history of breast cancer in paternal grandmother at age 75. Benign excisional biopsy of the right breast, 2005. Taking estrogen for 8 years beginning at age 39. Physical Findings: A clinical breast exam by your physician is recommended on an annual basis and results should be correlated with mammographic findings. MG 3D Screening Mammo W/Cad Bilateral CC and MLO view(s) were taken. Prior study comparison: July 08, 2017, bilateral MG screening mammo w CAD. March 24, 2016, bilateral MG screening mammo w CAD. The breast tissue is heterogeneously dense. This may lower the sensitivity of mammography. There is asymmetric breast tissue in the left breast seen on the MLO 4-5 cm from the nipple. Finding is changed when compared to prior images. Incomplete: need additional imaging. ASSESSMENT: Incomplete: need additional imaging evaluation, BI-RAD 0 RECOMMENDATION: Ultrasound of the left breast. [facility] will attempt to contact patient to return for ultrasound.
== END | disposition home or self-care (01) ==
LOC: RADMAMWWP 13:00
PROVIDERS: ATTEND Obstetrics & Gynecology Obstetrics
DX: Z12.31 Encounter for screening mammogram for malignant neoplasm of breast (principal)
CPT/HCPCS: 77063; 77067

== ENCOUNTER → 2018-11-21 | Outpatient (CLI) | payer BC ==
--- NOTE | 2018-11-21 11:07 | USB ---
Reason for exam: additional evaluation requested from abnormal screening. History: Patient is postmenopausal. Family history of breast cancer in paternal grandmother at age 75. Benign excisional biopsy of the right breast, 2005. Taking estrogen for 8 years beginning at age 39. Physical Findings: Nurse did not find any significant physical abnormalities on exam. US Breast Workup LT Left complete breast ultrasound includes all four quadrants, the retroareolar region and axilla. Finding demonstrates no cystic or solid lesion seen. These results were verbally communicated with the patient and result sheet given to the patient on 11/21/18. ASSESSMENT: Probably benign, BI-RAD 3 RECOMMENDATION: Follow-up diagnostic mammogram of the left breast in 6 months.
== END | disposition home or self-care (01) ==
LOC: RADUSWWP 10:03
PROVIDERS: ATTEND Obstetrics & Gynecology Obstetrics
DX: R92.8 Other abnormal and inconclusive findings on diagnostic imaging of breast (principal)

== ENCOUNTER → 2018-12-07 | Outpatient (CLI) | payer BC ==
[2018-12-07 11:47] LABS: Basophils % (A) 1 %; Eosinophils # (A) 0.1 k/uL (0-0.7); Eosinophils % (A) 2 %; HCT 35.1 % (34.0-46.0); HGB 11.8 gm/dL (11.4-16.0); Lymphocytes # (A) 1.3 k/uL (1.0-4.8); Lymphocytes % (A) 30 %; MCH 29.9 pg (25.0-35.0); MCHC 33.6 g/dL (31.0-37.0); MCV 89.1 fL (80.0-100.0); Mean Platelet Volume 8.1; Monocytes # (A) 0.3 k/uL (0-1.0); Monocytes % (A) 6 %; Neutrophils # (A) 2.5 k/uL (1.3-7.7); Neutrophils % (A) 59 %; Platelet Count 188 k/uL (150-450); RBC 3.94 m/uL (3.80-5.40); RDW 13.9 % (11.5-15.5); WBC 4.3 k/uL (3.8-10.6)
[2018-12-07 11:52] LABS: Prothrombin Time 10.6 sec (9.0-12.0)
[2018-12-07 15:30] LABS: African American GFR (CKD) 101.8 (60.0-200.0); Anion Gap 2.9 mmol/L (4.00-12.00); BUN/Creat Ratio 23.75 Ratio (12.00-20.00); Calcium 9.5 mg/dL (8.7-10.3); Carbon Dioxide 27.1 mmol/L (21.6-31.8); Potassium 4.8 mmol/L (3.5-5.5)
== END | disposition home or self-care (01) ==
LOC: LABWHC1 10:54
PROVIDERS: ATTEND Internal Medicine
DX: I48.0 Paroxysmal atrial fibrillation (principal)
CPT/HCPCS: 36415; 80048; 85025; 85610

== ENCOUNTER → 2020-01-02 | Outpatient (CLI) | payer BC ==
--- NOTE | 2020-01-03 10:00 | MM ---
Reason for exam: follow-up at short interval from prior study. Last mammogram was performed 1 year and 2 months ago. History: Patient is postmenopausal. Family history of breast cancer in paternal grandmother at age 75. Benign excisional biopsy of the right breast, 2005. Taking estrogen for 8 years beginning at age 39. Physical Findings: A clinical breast exam by your physician is recommended on an annual basis and results should be correlated with mammographic findings. MG 3D Diag Mammo W/Cad ALEJANDRINA Bilateral CC and MLO view(s) were taken. Prior study comparison: November 13, 2018, bilateral MG 3d screening mammo w/cad. July 08, 2017, bilateral MG screening mammo w CAD. The breast tissue is heterogeneously dense. This may lower the sensitivity of mammography. There is no discrete abnormality. No significant new findings when compared with previous films. These results were verbally communicated with the patient and result sheet given to the patient on 01/02/20. ASSESSMENT: Benign, BI-RAD 2 RECOMMENDATION: Routine screening mammogram of both breasts in 1 year.
== END | disposition home or self-care (01) ==
LOC: RADMAMWWP 10:08
PROVIDERS: ATTEND Obstetrics & Gynecology Obstetrics
DX: R92.8 Other abnormal and inconclusive findings on diagnostic imaging of breast (principal)
CPT/HCPCS: 77062; 77066

== ENCOUNTER 2020-12-05 08:13 | Emergency (ER) | payer BC ==
[2020-12-05 08:19] VITALS: TEMP 97.8
--- NOTE | 2020-12-05 08:33 | ED ---
General Adult HPI - General Chief complaint: Chest Pain Stated complaint: Chest pain Time Seen by Provider: 12/05/20 08:15 Source: patient, RN notes reviewed, old records reviewed Mode of arrival: wheelchair Limitations: no limitations - History of Present Illness Initial comments: This is a 50-year-old female with a past medical history significant for lupus and atrial fibrillation. Patient denies diabetes hypertension or high cholesterol. Patient states no immediate family member has any heart disease. Patient does state her grandfathers had heart disease. Patient comes in today because since yesterday she's been having some left-sided chest pain underneath her left breast that last between 6 and 15 seconds. Patient states there is no associated symptoms with it. Patient denies any diaphoretic episodes. Patient denies any shortness of breath or difficulty breathing. Patient denies any nausea. Patient denies any palpitations. Patient denies any recent fever chills or cough. Patient states she exercises regularly. Patient denies any abdominal pain patient denies any vomiting. - Related Data Home Medications Medication Instructions Recorded Confirmed Ascorbic Acid [Vitamin C] 1,000 mg PO DAILY 06/27/17 06/27/17 Cranberry 4200mg 4,200 mg PO BID 06/27/17 06/27/17 Enalapril [Vasotec] 20 mg PO BID 06/27/17 06/27/17 Hydroxychloroquine Sulfate 200 mg PO BID 06/27/17 06/27/17 [Plaquenil] Magnesium Oxide [Ch] 500 mg PO DAILY 06/27/17 06/27/17 estradioL [Estrace] 1.5 mg PO DAILY 06/27/17 06/27/17 Previous Rx's Medication Instructions Recorded Pantoprazole Sodium [Protonix] 40 mg PO BID #28 tablet. 06/29/17 Allergies Allergy/AdvReac Type Severity Reaction Status Date / Time narcotics Allergy Vomiting Uncoded 12/05/20 08:19 Review of Systems ROS Statement: Those systems with pertinent positive or pertinent negative responses have been documented in the HPI. ROS Other: All systems not noted in ROS Statement are negative. Past Medical History Past Medical History: Atrial Fibrillation, Hypertension Additional Past Medical History / Comment(s): lupus with kidney disease History of Any Multi-Drug Resistant Organisms: VRE Past Surgical History: Ablation, Section, Hysterectomy, Orthopedic Surgery Additional Past Surgical History / Comment(s): laparoscopy, kidney biopsy, knee surgery Past Psychological History: Depression Past Alcohol Use History: Occasional Past Drug Use History: None Reported - Past Family History Mother Brother(s) Family Medical History: AFIB Brother(s) Family Medical History: AFIB General Exam - General Exam Comments Initial Comments: GENERAL: Patient is well-developed and well-nourished. Patient is nontoxic and well- hydrated and is in no acute distress. ENT: Neck is soft and supple. No significant lymphadenopathy is noted. Oropharynx is clear. Moist mucous membranes. Neck has full range of motion without e liciting any pain. EYES: The sclera were anicteric and conjunctiva were pink and moist. Extraocular movements were intact and pupils were equal round and reactive to light. Eyelids were unremarkable. PULMONARY: Unlabored respirations. Good breath sounds bilaterally. No audible rales rhonchi or wheezing was noted. CARDIOVASCULAR: Patient is bradycardic at about 55 bpm ABDOMEN: Soft and nontender with normal bowel sounds. SKIN: Skin is clear with no lesions or rashes and otherwise unremarkable. NEUROLOGIC: Patient is alert and oriented x3. Cranial nerves II through XII are grossly intact. Motor and sensory are also intact. Normal speech, volume and content. Symmetrical smile. MUSCULOSKELETAL: Normal extremities with adequate strength and full range of motion. No lower e xtremity swelling or edema. No calf tenderness. LYMPHATICS: No significant lymphadenopathy is noted PSYCHIATRIC: Normal psychiatric evaluation. Limitations: no limitations Course Vital Signs 12/05/20 12/05/20 08:15 09:19 Temperature 97.8 F Pulse Rate 50 L 45 L Respiratory 16 18 Rate Blood Pressure 151/69 122/67 O2 Sat by Pulse 100 99 Oximetry Medical Decision Making - Medical Decision Making Patient had chest pain also in the room it lasted about 5-10 seconds and the patient did not appear in any distress and she was not short of breath at all. EKG shows sinus bradycardia at 46 bpm LA interval is 134 QRS is 92 QT interval is 466 QTC is 47. Patient's EKG shows no ST segment elevation or depression. Patient had multiple episodes while in the emergency department none of which showed any changes on the rhythm strip. Chest x-ray shows no acute abnormality. - Lab Data Result diagrams: 12/05/20 08:42 12/05/20 08:42 Lab Results 07/08/2312/05/20 12/05/20 Range/Units 08:42 08:42 08:42 WBC 3.5 L (3.8-10.6) k/uL RBC 4.81 (3.80-5.40) m/uL Hgb 14.9 (11.4-16.0) gm/dL Hct 42.1 (34.0-46.0) % MCV 87.5 (80.0-100.0) fL MCH 30.9 (25.0-35.0) pg MCHC 35.3 (31.0-37.0) g/dL RDW 12.3 (11.5-15.5) % Plt Count 216 (150-450) k/uL MPV 7.6 Neutrophils % 66 % Lymphocytes % 24 % Monocytes % 5 % Eosinophils % 2 % Basophils % 1 % Neutrophils # 2.3 (1.3-7.7) k/uL Lymphocytes # 0.8 L (1.0-4.8) k/uL Monocytes # 0.2 (0-1.0) k/uL Eosinophils # 0.1 (0-0.7) k/uL Basophils # 0.0 (0-0.2) k/uL PT 10.1 (9.0-12.0) sec INR 0.9 (<1.2) APTT 22.3 (22.0-30.0) sec Sodium 139 (137-145) mmol/L Potassium 4.6 (3.5-5.1) mmol/L Chloride 104 (98-107) mmol/L Carbon Dioxide 28 (22-30) mmol/L Anion Gap 7 mmol/L BUN 27 H (7-17) mg/dL Creatinine 0.82 (0.52-1.04) mg/dL Est GFR (CKD-EPI)AfAm >90 (>60 ml/min/1.73 sqM) Est GFR (CKD-EPI)NonAf 84 (>60 ml/min/1.73 sqM) Glucose 119 H (74-99) mg/dL Calcium 10.6 H (8.4-10.2) mg/dL Magnesium 1.7 (1.6-2.3) mg/dL Total Bilirubin 0.5 (0.2-1.3) mg/dL AST 35 (14-36) U/L ALT 24 (4-34) U/L Alkaline Phosphatase 48 (38-126) U/L Troponin I (0.000-0.034) ng/mL Total Protein 7.8 (6.3-8.2) g/dL Albumin 4.8 (3.5-5.0) g/dL 12/05/20 Range/Units 08:42 WBC (3.8-10.6) k/uL RBC (3.80-5.40) m/uL Hgb (11.4-16.0) gm/dL Hct (34.0-46.0) % MCV (80.0-100.0) fL MCH (25.0-35.0) pg MCHC (31.0-37.0) g/dL RDW (11.5-15.5) % Plt Count (150-450) k/uL MPV Neutrophils % % Lymphocytes % % Monocytes % % Eosinophils % % Basophils % % Neutrophils # (1.3-7.7) k/uL Lymphocytes # (1.0-4.8) k/uL Monocytes # (0-1.0) k/uL Eosinophils # (0-0.7) k/uL Basophils # (0-0.2) k/uL PT (9.0-12.0) sec INR (<1.2) APTT (22.0-30.0) sec Sodium (137-145) mmol/L Potassium (3.5-5.1) mmol/L Chloride (98-107) mmol/L Carbon Dioxide (22-30) mmol/L Anion Gap mmol/L BUN (7-17) mg/dL Creatinine (0.52-1.04) mg/dL Est GFR (CKD-EPI)AfAm (>60 ml/min/1.73 sqM) Est GFR (CKD-EPI)NonAf (>60 ml/min/1.73 sqM) Glucose (74-99) mg/dL Calcium (8.4-10.2) mg/dL Magnesium (1.6-2.3) mg/dL Total Bilirubin (0.2-1.3) mg/dL AST (14-36) U/L ALT (4-34) U/L Alkaline Phosphatase (38-126) U/L Troponin I <0.012 (0.000-0.034) ng/mL Total Protein (6.3-8.2) g/dL Albumin (3.5-5.0) g/dL Disposition Clinical Impression: Chest wall pain Disposition: HOME SELF-CARE Instructions (If sedation given, give patient instructions): Chest Pain (ED) Additional Instructions: Patient did take Motrin 600 mg every 6 hours. Patient returns as any worsening symptoms or any new symptoms. Is patient prescribed a controlled substance at d/c from ED?: No Referrals: Eusebia Fuentes DO [Primary Care Provider] - 1-2 days Time of Disposition: 09:54
[2020-12-05 08:59] LABS: Basophils % (A) 1 %; Eosinophils # (A) 0.1 k/uL (0-0.7); Eosinophils % (A) 2 %; HCT 42.1 % (34.0-46.0); HGB 14.9 gm/dL (11.4-16.0); Lymphocytes # (A) 0.8 k/uL (1.0-4.8); Lymphocytes % (A) 24 %; MCH 30.9 pg (25.0-35.0); MCHC 35.3 g/dL (31.0-37.0); MCV 87.5 fL (80.0-100.0); Mean Platelet Volume 7.6; Monocytes # (A) 0.2 k/uL (0-1.0); Monocytes % (A) 5 %; Neutrophils # (A) 2.3 k/uL (1.3-7.7); Neutrophils % (A) 66 %; Platelet Count 216 k/uL (150-450); RBC 4.81 m/uL (3.80-5.40); RDW 12.3 % (11.5-15.5); WBC 3.5 k/uL (3.8-10.6)
--- NOTE | 2020-12-05 08:59 | XR ---
EXAMINATION TYPE: XR chest 2V DATE OF EXAM: 12/05/2020 COMPARISON: 04/03/2011 HISTORY: Chest pain TECHNIQUE: Frontal and lateral views of the chest are obtained. FINDINGS: There is no focal air space opacity, pleural effusion, or pneumothorax seen. The cardiac silhouette size is within normal limits. The osseous structures are intact. Cholecystectomy clips s een in the right upper quadrant. IMPRESSION: No acute cardiopulmonary process. No significant change since 2010.
[2020-12-05 09:07] LABS: INR 0.9 (<1.2); Partial Thromboplastin Time 22.3 sec (22.0-30.0); Prothrombin Time 10.1 sec (9.0-12.0)
[2020-12-05 09:09] LABS: ALT 24 U/L (4-34); AST 35 U/L (14-36); African American GFR (CKD) >90 (>60 ml/min/1.73 sqM); Albumin 4.8 g/dL (3.5-5.0); Alkaline Phosphatase 48 U/L (38-126); Anion Gap 7 mmol/L; Blood Urea Nitrogen 27 mg/dL (7-17); Calcium 10.6 mg/dL (8.4-10.2); Carbon Dioxide 28 mmol/L (22-30); Chloride 104 mmol/L (98-107); Glucose 119 mg/dL (74-99); Magnesium 1.7 mg/dL (1.6-2.3); Non-African American GFR(CKD) 84 (>60 ml/min/1.73 sqM); Potassium 4.6 mmol/L (3.5-5.1); Sodium 139 mmol/L (137-145); Total Bilirubin 0.5 mg/dL (0.2-1.3); Total Protein 7.8 g/dL (6.3-8.2)
[2020-12-05 09:37] VITALS: PULSE 45; RESP 18
[2020-12-05 10:13] VITALS: BP 108/68
== END 2020-12-05 10:10 | disposition home or self-care (01) ==
LOC: EC 08:13
DX: R07.89 Other chest pain (principal); I10 Essential (primary) hypertension; I48.91 Unspecified atrial fibrillation; F32.9 Major depressive disorder, single episode, unspecified
CPT/HCPCS: 36415; 71046; 80053; 83735; 84484; 85025; 85610; 85730; 93005; 99285

== ENCOUNTER → 2021-03-03 | Outpatient (CLI) | payer BC ==
--- NOTE | 2021-03-08 10:14 | MM ---
Reason for exam: screening (asymptomatic). Last mammogram was performed 1 year and 2 months ago. History: Patient is postmenopausal. Family history of breast cancer in paternal grandmother at age 75. Benign excisional biopsy of the right breast, 2005. Taking estrogen for 8 years beginning at age 39. Physical Findings: A clinical breast exam by your physician is recommended on an annual basis and results should be correlated with mammographic findings. MG 3D Screening Mammo W/Cad Bilateral CC and MLO view(s) were taken. Prior study comparison: January 02, 2020, bilateral MG 3d diag mammo w/cad ALEJANDRINA. November 13, 2018, bilateral MG 3d screening mammo w/cad. July 08, 2017, bilateral MG screening mammo w CAD. March 24, 2016, bilateral MG screening mammo w CAD. The breast tissue is heterogeneously dense. This may lower the sensitivity of mammography. Stable dermal calcifications right inframmary fold. No significant changes when compared with prior studies. ASSESSMENT: Benign, BI-RAD 2 RECOMMENDATION: Routine screening mammogram of both breasts in 1 year.
== END | disposition home or self-care (01) ==
LOC: RADMAMWWP 15:35
PROVIDERS: ATTEND Obstetrics & Gynecology Obstetrics
DX: Z12.31 Encounter for screening mammogram for malignant neoplasm of breast (principal); Z80.3 Family history of malignant neoplasm of breast; Z78.0 Asymptomatic menopausal state
CPT/HCPCS: 77063; 77067

== ENCOUNTER → 2021-03-09 | Outpatient (CLI) | payer BC ==
--- NOTE | 2021-03-10 05:47 | CT ---
EXAMINATION TYPE: CT abdomen pelvis wo con DATE OF EXAM: 03/09/2021 HISTORY: LT side/flank pain CT DLP: 668 mGycm. Automated Exposure Control for Dose Reduction was Utilized. TECHNIQUE: CT scan of the abdomen and pelvis is performed without oral or IV contrast. COMPARISON: CT abdomen and pelvis June 27, 2017 FINDINGS: Within the limitations of a non-contrast study, the following observations are made. Curre nt exam is degraded by ring down artifact. LUNG BASES: No significant abnormality is appreciated. LIVER/GB: Cholecystectomy clips are now present. PANCREAS: No significant abnormality is seen. SPLEEN: No significant abnormality is seen. ADRENALS: No significant abnormality is seen. KIDNEYS: No renal stones or hydronephrosis currently. No intraluminal calculi in bladder. BOWEL: Mild diffuse colonic fecal prominence. Small bowel feces sign distal and terminal ileum. No hutchinson spicious small bowel dilatation. Findings consistent with delayed passage of ingested material to col onic level. GENITAL ORGANS: Uterus surgically absent or atrophic in appearance. Scattered bilateral pelvic phlebo liths redemonstrated. LYMPH NODES: No greater than 1cm abdominal or pelvic lymph nodes are appreciated. OSSEOUS STRUCTURES: No significant abnormality is seen. OTHER: No significant additional abnormality is seen. IMPRESSION: No renal stones or hydronephrosis is seen bilaterally. Mild diffuse colonic fecal stasis. No bowel obstruction.
== END | disposition home or self-care (01) ==
LOC: RADCTMAIN 18:01
PROVIDERS: ATTEND Internal Medicine
DX: K59.89 Other specified functional intestinal disorders (principal)
CPT/HCPCS: 74176

== ENCOUNTER → 2021-08-26 | Outpatient (CLI) | payer BC ==
--- NOTE | 2021-08-26 11:19 | FL ---
EXAMINATION TYPE: FL UGI DATE OF EXAM: 08/26/2021 COMPARISON: None HISTORY: Dysphagia TECHNIQUE: Real-time observation fluoroscopy and overhead radiographs were obtained on a double air c ontrast upper GI. FINDINGS: Real-time observation of the esophagus appears unremarkable. No intraluminal or extramural defects ar e evident. Note is made of multiple episodes of reflux within the distal esophagus during the exam. N ote is also made of a secondary contraction during horizontal drinking. Upper GI: Fundus body and antrum of stomach are well visualized. No intraluminal or extramural defect s are evident. Contrast readily passes through the stomach into the duodenal cap and sweep. Ligament of Treitz is in a normal position. There is some mild fold hypertrophy of the first portion of the du odenum. No discrete ulcers are identified. Images: 22 Fluoroscopy time: 1 minute 40 seconds IMPRESSION: 1. Mild fold hypertrophy of this proximal duodenum. Correlate for mild lateral meniscus. 2. Gastroesophageal reflux to the level of the clavicles. Additional smaller episodes of reflux were evident during the exam.
== END | disposition home or self-care (01) ==
LOC: RADUSWWP 07:51
PROVIDERS: ATTEND Internal Medicine Gastroenterology
DX: K31.89 Other diseases of stomach and duodenum (principal); K21.9 Gastro-esophageal reflux disease without esophagitis
CPT/HCPCS: 74240

== ENCOUNTER → 2022-03-16 | Outpatient (CLI) | payer BC ==
--- NOTE | 2022-03-17 10:44 | MM ---
Reason for Exam: Screening (asymptomatic). Last mammogram was performed 1 year(s) and 1 month(s) ago. Patient History: Menarche at age 14. First Full-Term at age 27. Left ovary removed at age 39. Right ovary removed at age 39. Hysterectomy at age 39. Postmenopausal. Currently using Estrogen, beginning at age 39 for 8 years. 2006, Benign Excisional Biopsy on the right side. Paternal grandmother had breast cancer, age 75. Risk Values: Kristy 5 year model risk: 1.3%. NCI Lifetime model risk: 11.6%. Prior Study Comparison: 11/13/2018 Bilateral Screening Mammogram, [facility]. 01/02/2020 Bilateral Diagnostic Mammogram, [facility]. 03/03/2021 Bilateral Screening Mammogram, [facility]. Tissue Density: The breast tissue is heterogeneously dense. This may lower the sensitivity of mammography. Findings: Analyzed By CAD. There is no suspicious group of microcalcifications or new suspicious mass in either breast. Benign calcifications within both breasts. No significant change from prior examinations. Overall Assessment: Benign, BI-RAD 2 Management: Screening Mammogram of both breasts in 1 year. A clinical breast exam by your physician is recommended on an annual basis and results should be correlated with mammographic findings. Electronically signed and approved by: Hunter Ballard D.O.
== END | disposition home or self-care (01) ==
LOC: RADMAMWWP 13:11
PROVIDERS: ATTEND Obstetrics & Gynecology Obstetrics
DX: Z12.31 Encounter for screening mammogram for malignant neoplasm of breast (principal)
CPT/HCPCS: 77063; 77067

== ENCOUNTER → 2023-06-22 | Outpatient (CLI) | payer BC ==
--- NOTE | 2023-06-23 20:13 | MM ---
Reason for Exam: Screening (asymptomatic). Last mammogram was performed 1 year(s) and 3 month(s) ago. Patient History: Menarche at age 14. First Full-Term at age 27. Left ovary removed at age 39. Right ovary removed at age 39. Hysterectomy at age 39. Postmenopausal. Patient has history of breast feeding. Currently using Estrogen, beginning at age 39 for 8 years. 2006, Benign Excisional Biopsy on the right side. Paternal grandmother had breast cancer, age 75. Risk Values: Kristy 5 year model risk: 1.4%. NCI Lifetime model risk: 11.2%. Prior Study Comparison: 01/02/2020 Bilateral Diagnostic Mammogram, [facility]. 03/03/2021 Bilateral Screening Mammogram, [facility]. 03/16/2022 Bilateral MG 3D screening mammo w/cad, [facility]. Tissue Density: The breast tissue is heterogeneously dense. This may lower the sensitivity of mammography. Findings: Analyzed By CAD. Unchanged bilateral asymmetric densities. Dermal calcifications medially in the right breast redemonstrated. There is no suspicious group of microcalcifications or new suspicious mass in either breast. Overall Assessment: Benign, BI-RAD 2 Management: Screening Mammogram of both breasts in 1 year. . Patient should continue monthly self-breast exams. A clinical breast exam by your physician is recommended on an annual basis. This exam should not preclude additional follow-up of suspicious palpable abnormalities. Note on Kristy scores and lifetime risk: 1. A Kristy score greater than 3% is considered moderate risk. If this is the case, consider specialist referral to assess eligibility for a risk reducing agent. 2. If overall lifetime risk for the development of breast cancer is 20% or higher, the patient may qualify for future screening with alternating mammogram and breast MRI. Electronically signed and approved by: Albert Jackson M.D. Radiologist
== END | disposition home or self-care (01) ==
LOC: RADMAMWWP 10:35
PROVIDERS: ATTEND Obstetrics & Gynecology Obstetrics
DX: Z12.31 Encounter for screening mammogram for malignant neoplasm of breast (principal); Z80.3 Family history of malignant neoplasm of breast; Z78.0 Asymptomatic menopausal state
CPT/HCPCS: 77063; 77067

== ENCOUNTER → 2024-03-14 | Outpatient (CLI) | payer BC ==
--- NOTE | 2024-03-14 13:53 | BD ---
EXAMINATION TYPE: Axial Bone Density DATE OF EXAM: 03/14/2024 CLINICAL HISTORY: 53 years old Female. ICD-10 CODE: Z01.419 [employer] FOR [employer] EXAM (GENERAL) (ROUTINE) Height: 66 Weight: 165 FRAX RISK QUESTIONS: Secondary Osteoporosis: yes 3. Menopause before 45: total hyst at 39 yrs old RISK FACTORS HISTORY OF: lupus, MEDICATIONS: vit d, Plaquenil for 25 yrs stopped just under a yr, EXAM MEASUREMENTS: Bone mineral densitometry was performed using the DSTLD System. Bone mineral density as measured about the Lumbar spine is: ----- L1-L4(G/cm2): 1.226 T Score Values are as follows: ----- L1: 0.0 ----- L2: 0.4 ----- L3: 0.6 ----- L4: 0.4 ----- L1-L4: 0.4 Z Score Values are as follows: ----- L1: 0.3 ----- L2: 0.7 ----- L3: 0.9 ----- L4: 0.7 ----- L1-L4: 0.7 Bone mineral density is her first bone density study, baseline. Bone mineral density about the R hip (g/cm2): 1.012 Bone mineral density about the L hip (g/cm2): 1.086 T Score values are as follows: -----R Neck: 0.0 -----L Neck: 0.5 -----R Total: 0.0 -----L Total: 0.6 Z Score values are as follows: -----R Neck: 0.7 -----L Neck: 1.2 -----R Total: 0.4 -----L Total: 1.0 Bone mineral density is her baseline study today. FRAX%s: The graph provided illustrates a 4.4% chance for a major osteoporotic fx and a 0.1% chance fo r the hips probability for fx in 10 years time. IMPRESSION: Normal (Values between +1 and -1 indicate normal bone mass). Consider repeating this study in 5 year s or sooner if there is some new clinical indication. NOTE: T-SCORE=SD OF THE YOUNG ADULT MEAN. [facility], , 03/14/2024 1:50 PM
== END | disposition home or self-care (01) ==
LOC: RADBDWWP 12:44
PROVIDERS: ATTEND Obstetrics & Gynecology Obstetrics
DX: Z01.419 Encounter for gynecological examination (general) (routine) without abnormal findings (principal)
CPT/HCPCS: 77080